=== PATIENT | female | born 1980 | race Two or more races ===

== ENCOUNTER → 2024-10-12 | Outpatient (CLI) | payer OTHER, SELFPAY ==
--- NOTE | 2024-10-12 08:30 | XR_ITS ---
Examination: Screening digital mammography, bilateral Computer aided detection 3-D breast Tomosynthesis, bilateral Date and time of exam: October 12, 2024 at 0854 hrs. Comparison January 30, 2022 Indication: Screening Technique: Nonmagnified MLO, CC views of the breasts to been obtained, reconstructed from 3-D Tomosynthesis images. R2 computer aided detection program utilized for evaluation of suspicious masses and/or abnormal calcifications. 3-D Tomosynthesis images obtained. Findings: Scattered areas of fibroglandular density. Benign calcifications. No interval suspicious masses Impression: BI-RADS category II: Benign Findings. Recommend 1 year follow-up mammogram.
== END | disposition home or self-care (01) ==
PROVIDERS: PCP Nurse Practitioner Family; Referring Provider Nurse Practitioner Family; Visit Provider Nurse Practitioner Family
DX: R92.323 Mammographic fibroglandular density, bilateral breasts (principal); R92.1 Mammographic calcification found on diagnostic imaging of breast
CPT/HCPCS: 77063; 77067

== ENCOUNTER → 2025-02-01 | Outpatient (CLI) | payer OTHER, SELFPAY ==
--- NOTE | 2025-02-01 08:28 | XR_ITS ---
Examination: Knee, left standing , 3 views Technique: Knee AP, lateral, oblique 3 views Date and time of exam: February 01, 2025 0832 hours INDICATIONS: Knee pain beginning as a child FINDINGS: Significant osteopenia. No fracture Mild narrowing medial patellofemoral joints Small knee effusion IMPRESSION: No fracture Suggest follow-up axial view of the patella as clinically warranted
== END | disposition home or self-care (01) ==
LOC: CDIM 08:11
PROVIDERS: Referring Provider Nurse Practitioner Family; Visit Provider Nurse Practitioner Family
DX: M23.8X2 Other internal derangements of left knee (principal)
CPT/HCPCS: 73562

== ENCOUNTER → 2025-06-01 | Outpatient (CLI) | payer OTHER, SELFPAY ==
--- NOTE | 2025-06-01 16:30 | XR_ITS ---
Exam: MRI knee without contrast, left Date and time of exam: June 01, 2025, 1707 hrs. Indications: Knee pain 5 years with joint clicking stiffness swelling instability Technique: Multiple axial, coronal, and sagittal sections on the knee have been obtained. T2-Weighted sagittal, fat-suppressed images, TR 3,500, TE 62, T2 weighted coronal fat-saturated images, TR 3,500, TE 62 Proton density sagittal sections, TR 1800, TE 31. T-1 weighted coronal images, TR 524, TE 13.0 Findings: Medial meniscus anterior horn intact. Medial meniscus, body intact. Posterior horn medial meniscus intact. Lateral meniscus anterior horn is intact Lateral meniscus, body is intact Posterior horn lateral meniscus is intact Anterior cruciate ligament high-grade sprain versus attenuation Posterior cruciate ligament appears intact. Knee effusion is minimal. Quadriceps and patellar tendons appear intact. There is no evidence of tendinosis. Chronic lateral subluxation patella 11 mm Inflammatory change or fracture of Hoffa's fat pad is not seen. Medial patellar facet demonstrates moderate thinning. Lateral patellar facet cartilage demonstrates mild thinning. Trochlear cartilage demonstrates moderate thinning. Marrow signal adequate. Medial collateral ligament appears intact. No meniscocapsular separation is seen. Illiotibial band and fibular collateral ligament are intact. Biceps femoris tendons appear intact. Medial femoral condylar articular cartilage demonstrates moderate thinning. Lateral femoral condylar articular cartilage demonstratesmoderate thinning. Tibial plateau cartilage demonstrates moderate thinning. 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
== END | disposition home or self-care (01) ==
PROVIDERS: PCP Nurse Practitioner Family; Referring Provider Nurse Practitioner Family; Visit Provider Nurse Practitioner Family
DX: S83.8X2A Sprain of other specified parts of left knee, initial encounter (principal); S83.092A Other subluxation of left patella, initial encounter; X58.XXXA Exposure to other specified factors, initial encounter
CPT/HCPCS: 73721